=== PATIENT | female | born 1995 | race American Indian/Alaskan Native ===

== ENCOUNTER 2018-04-03 21:59 | Emergency (ER) | payer MEDICAID ==
[2018-04-03 21:59] VITALS: BMI 20.3
[2018-04-03 22:19] VITALS: TEMP 98.2
--- NOTE | 2018-04-03 22:30 | ED PDOC ---
Arrival/HPI - General Chief Complaint: Abdominal Pain Time Seen by Provider: 04/03/18 22:00 Historian: Patient - History of Present Illness Narrative History of Present Illness (Text): 04/03/18 22:30 Monty Mason is a 22 year old female who presents to the Emergency department complaining of suprapubic abdominal discomfort since yesterday. Patient describes pain as waxing/waning. Patient reports associated scanty vaginal discharge and some urinary frequency. Patient denies any fever, chills, shortness of breath, nausea, vomiting, diarrhea, dysuria, back pain, neck pain, headache, or any other complaints. Symptom Onset: Gradual Symptom Course: Unchanged Activities at Onset: Light Context: Home Past Medical History - Provider Review Nursing Documentation Reviewed: Yes - Infectious Disease Hx of Infectious Diseases: None - Cardiac Hx Cardiac Disorders: No - Pulmonary Hx Respiratory Disorders: No - Neurological Hx Neurological Disorder: No - HEENT Hx HEENT Disorder: No - Renal Hx Renal Disorder: No - Endocrine/Metabolic Hx Endocrine Disorders: No - Hematological/Oncological Hx Blood Disorders: No - Integumentary Hx Dermatological Disorder: No - Musculoskeletal/Rheumatological Hx Musculoskeletal Disorders: No - Gastrointestinal Hx Gastrointestinal Disorders: No - Genitourinary/Gynecological Hx Genitourinary Disorders: No - Psychiatric Hx Psychophysiologic Disorder: No Hx Anxiety: No Hx Bipolar Disorder: No Hx Depression: No Hx Emotional Abuse: No Hx Hallucinations: No Hx Panic Disorder: No Hx Post Traumatic Stress Disorder: No Hx Psychosis: No Hx Physical Abuse: No Hx Schizophrenia: No Hx Sexual Abuse: No Hx Substance Use: No - Anesthesia Hx Anesthesia: Yes Hx Anesthesia Reactions: No Hx Malignant Hyperthermia: No Family/Social History - Physician Review Nursing Documentation Reviewed: Yes Family/Social History: Unknown Family HX Smoking Status: Never Smoked Hx Alcohol Use: Yes Hx Substance Use: No Allergies/Home Meds Allergies/Adverse Reactions: Allergies No Known Allergies Allergy (Verified 04/03/18 22:08) Review of Systems - Physician Review All systems were reviewed & negative as marked: Yes - Review of Systems Constitutional: Normal. absent: Fevers Eyes: Normal ENT: Normal Respiratory: Normal. absent: SOB, Cough Cardiovascular: Normal. absent: Chest Pain Gastrointestinal: absent: Diarrhea, Nausea, Vomiting Genitourinary Female: Frequency, Vaginal Discharge. absent: Hematuria, Urine Output Changes Musculoskeletal: Normal. absent: Back Pain, Neck Pain Skin: Normal. absent: Rash Neurological: Normal. absent: Headache, Dizziness Endocrine: Normal Hemo/Lymphatic: Normal Psychiatric: Normal Physical Exam Vital Signs Reviewed: Yes Vital Signs Temp Pulse Resp BP Pulse Ox 04/04/18 01:38 98.2 F 72 17 138/72 98 04/03/18 22:08 98.2 F 68 18 140/89 99 Temperature: Afebrile Blood Pressure: Normal Pulse: Regular Respiratory Rate: Normal Appearance: Positive for: Well-Appearing, Non-Toxic, Comfortable Pain Distress: None Mental Status: Positive for: Alert and Oriented X 3 - Systems Exam Head: Present: Atraumatic, Normocephalic Pupils: Present: PERRL Extroacular Muscles: Present: EOMI Conjunctiva: Present: Normal Mouth: Present: Moist Mucous Membranes Neck: Present: Normal Range of Motion Respiratory/Chest: Present: Clear to Auscultation, Good Air Exchange. No: Respiratory Distress, Accessory Muscle Use Cardiovascular: Present: Regular Rate and Rhythm, Normal S1, S2. No: Murmurs Abdomen: No: Tenderness, Distention, Peritoneal Signs Genitourinary/Pelvic Exam: Present: Other (Refused pelvic exam) Back: Present: Normal Inspection Upper Extremity: Present: Normal Inspection. No: Cyanosis, Edema Lower Extremity: Present: Normal Inspection. No: Edema Neurological: Present: GCS=15, CN II-XII Intact, Speech Normal Skin: Present: Warm, Dry, Normal Color. No: Rashes Psychiatric: Present: Alert, Oriented x 3, Normal Insight, Normal Concentration Medical Decision Making ED Course and Treatment: 04/03/18 22:30 Impression: 22 year old female complaining of suprapubic abdominal discomfort. Plan: -- Labs, lipase -- Urinalysis -- IV fluids -- Reassess and disposition Progress Notes: 04/04/18 01:17 Pt refused pelvic exam. 04/04/18 01:20 On re-evaluation, patient feels better and is in no acute distress. I have discussed the results and plan with the patient, who expresses understanding. Patient in agreement with plan to be discharged home. Patient is stable for discharge. Patient was instructed to follow up with physician or return if symptoms worsen or new concerning symptoms arise. - Lab Interpretations Lab Results: 04/03/18 22:45 04/03/18 22:45 Lab Results 04/03/18 22:45: WBC 7.3, RBC 4.37, Hgb 11.0 L, Hct 33.7 L, MCV 77.1 L, MCH 25.2 , MCHC 32.6, RDW 15.1 H, Plt Count 234, MPV 9.7 04/03/18 22:45: Sodium 140, Potassium 3.7, Chloride 103, Carbon Dioxide 27, Anion Gap 14, BUN 16, Creatinine 0.7, Est GFR ( Amer) > 60, Est GFR (Non- Af Amer) > 60, Random Glucose 101, Calcium 9.4, Total Bilirubin 0.5, AST 19, ALT 21, Alkaline Phosphatase 53, Total Protein 6.9, Albumin 3.9, Globulin 3.1, Albumin/Globulin Ratio 1.3, Lipase 98 04/03/18 22:38: Urine Color Yellow, Urine Appearance Sl cloudy, Urine pH 6.0, Ur Specific [place] >= 1.030, Urine Protein Trace H, Urine Glucose (UA) Negative , Urine Ketones Trace H, Urine Blood Trace-lysed H, Urine Nitrate Negative, Urine Bilirubin Negative, Urine Urobilinogen 0.2, Ur Leukocyte Esterase Moderate H, Urine RBC 0 - 2, Urine WBC 5 - 10, Ur Epithelial Cells 1 - 3, Urine Bacteria Small, Urine HCG, Qual Negative I have reviewed the lab results: Yes - Medication Orders Current Medication Orders: Discontinued Medications Cephalexin Monohydrate (Keflex) 500 mg PO ONCE STA PRN Reason: Protocol Stop: 04/04/18 01:18 Last Admin: 04/04/18 01:37 Dose: 500 mg Sodium Chloride (Sodium Chloride 0.9%) 1,000 mls @ 999 mls/hr IV .Q1H1M STA Stop: 04/03/18 23:31 Last Admin: 04/03/18 22:51 Dose: 999 mls/hr eMAR Start Stop Document 04/03/18 22:51 IT (Rec: 04/03/18 22:51 IT [id number]) Intravenous Solution Start Date 04/03/18 Start Time 22:51 Ibuprofen (Motrin Tab) 600 mg PO STAT STA Stop: 04/04/18 01:18 Last Admin: 04/04/18 01:37 Dose: 600 mg - Scribe Statement The provider has reviewed the documentation as recorded by the Rodney Barrera All medical record entries made by the Rodney were at my direction and personally dictated by me. I have reviewed the chart and agree that the record accurately reflects my personal performance of the history, physical exam, medical decision making, and the department course for this patient. I have also personally directed, reviewed, and agree with the discharge instructions and disposition. Disposition/Present on Arrival - Present on Arrival Any Indicators Present on Arrival: No History of DVT/PE: No History of Uncontrolled Diabetes: No Urinary Catheter: No History of Decub. Ulcer: No History Surgical Site Infection Following: None - Disposition Have Diagnosis and Disposition been Completed?: Yes Diagnosis: UTI (urinary tract infection) Disposition: HOME/ ROUTINE Disposition Time: 01:18 Patient Plan: Discharge Condition: GOOD Discharge Instructions (ExitCare): Urinary Tract Infection, Adult (DC) Additional Instructions: Drink plenty of liquids/take meds as prescribed/follow up with your doctor this week Prescriptions: Cephalexin [cephalexin] 500 mg PO BID #10 cap Ibuprofen [Motrin] 600 mg PO Q8 PRN #12 tab PRN Reason: Pain, Moderate (4-7) Forms: [facility] (Puerto Rican)
[2018-04-03] MEDS ORDERED: Sodium Chloride 0.9% 1,000 ML IV STA (22:31)
[2018-04-03 22:49] LABS: MEAN CELL VOLUME 77.1 fl (80.0-105.0); MEAN CORPUSCULAR HEMOGLOBIN 25.2 pg (25.0-35.0); MEAN CORPUSCULAR HGB CONC 32.6 g/dl (31.0-37.0); MEAN PLATELET VOLUME 9.7 fl (7.0-11.0); RBC 4.37 10^6/uL (3.5-6.1); RED CELL DISTRIBUTION WIDTH 15.1 % (11.5-14.5); WHITE BLOOD COUNT 7.3 10^3/ul (4.5-11.0)
[2018-04-03 22:59] LABS: ALB/GLOB RATIO 1.3 (1.1-1.8); ALBUMIN 3.9 g/dL (3.0-4.8); ALT/SGPT 21 U/L (7-56); AST/SGOT 19 U/L (14-36); BLOOD UREA NITROGEN 16 mg/dL (7-21); CALCIUM 9.4 mg/dL (8.4-10.5); GFR AFRICAN-AMERICAN > 60; GFR NON-AFRICAN AMERICAN > 60; LIPASE 98 U/L (23-300)
[2018-04-04 00:34] LABS: URINE BILIRUBIN NEGATIVE (NEGATIVE); URINE BLOOD TRACE-LYSED (NEGATIVE); URINE GLUCOSE (UA) NEGATIVE (NEGATIVE); URINE LEUKOCYTE ESTERASE MODERATE Leu/uL (NEGATIVE); URINE PROTEIN TRACE mg/dL (<30 mg/dL); URINE UROBILINOGEN 0.2 E.U./dL (<1 E.U./dL)
[2018-04-04 00:41] LABS: HCG,QUALITATIVE URINE NEGATIVE (NEGATIVE); URINE APPEARANCE SL CLOUDY (CLEAR); URINE COLOR YELLOW (YELLOW)
[2018-04-04 00:46] LABS: URINE BACTERIA SMALL (NEG); URINE RBC 0 - 2 /hpf (0-2)
[2018-04-04 01:39] VITALS: BP 138/72; PULSE 72; RESP 17; O2SAT 98
== END 2018-04-04 01:38 | disposition home or self-care (01) ==
LOC: ED 21:59
DX: N39.0 Urinary tract infection, site not specified (principal)
CPT/HCPCS: 80053; 81001; 83690; 84703; 85027; 87086; 99283; J7030

== ENCOUNTER 2018-09-23 11:22 | Emergency (ER) | payer MEDICAID ==
[2018-09-23 11:47] VITALS: BMI 29.8
[2018-09-23 11:56] VITALS: O2SAT 99
[2018-09-23] MEDS ORDERED: Oxycodone/Acetaminophen 5/325 mg Tab PO STA (12:08)
--- NOTE | 2018-09-23 12:08 | ED PDOC ---
Arrival/HPI - General Chief Complaint: Dental Pain Historian: Patient - History of Present Illness Narrative History of Present Illness (Text): 09/23/18 11:58 22 y/o female, no significant pmh, nkda, c/o rt. lower molar pain s/p wisdom tooth extraction 2-3 days ago. Pt. stated that it's aching pain, on and off, taking tylenol#3 and the penicillin at home, unable to see the pmd or dentist today, no night sweat, no rash, no dizziness, no change in vision, no numbness or tingling, no rash, no other medical or psychological complaints. Past Medical History - Provider Review Nursing Documentation Reviewed: Yes - Infectious Disease Hx of Infectious Diseases: None - Cardiac Hx Cardiac Disorders: No - Pulmonary Hx Respiratory Disorders: No - Neurological Hx Neurological Disorder: No - HEENT Hx HEENT Disorder: No - Renal Hx Renal Disorder: No - Endocrine/Metabolic Hx Endocrine Disorders: No - Hematological/Oncological Hx Blood Disorders: No - Integumentary Hx Dermatological Disorder: No - Musculoskeletal/Rheumatological Hx Musculoskeletal Disorders: No - Gastrointestinal Hx Gastrointestinal Disorders: No - Genitourinary/Gynecological Hx Genitourinary Disorders: No - Psychiatric Hx Psychophysiologic Disorder: No Hx Anxiety: No Hx Bipolar Disorder: No Hx Depression: No Hx Emotional Abuse: No Hx Hallucinations: No Hx Panic Disorder: No Hx Post Traumatic Stress Disorder: No Hx Psychosis: No Hx Physical Abuse: No Hx Schizophrenia: No Hx Sexual Abuse: No Hx Substance Use: No - Anesthesia Hx Anesthesia: Yes Hx Anesthesia Reactions: No Hx Malignant Hyperthermia: No Family/Social History - Physician Review Nursing Documentation Reviewed: Yes Family/Social History: Unknown Family HX Smoking Status: Never Smoked Hx Alcohol Use: Yes Hx Substance Use: No Allergies/Home Meds Allergies/Adverse Reactions: Allergies No Known Allergies Allergy (Verified 09/23/18 11:56) Home Medications: Home Meds Medication Instructions Recorded Confirmed Acetaminophen with Codeine 1 tab PO PRN PRN 09/23/18 09/23/18 [Tylenol with Codeine No. 3 300 mg-30 mg] Review of Systems - Review of Systems Constitutional: absent: Fatigue, Fevers Eyes: absent: Vision Changes ENT: Other (+dental pain). absent: Hearing Changes Respiratory: absent: SOB, Cough Cardiovascular: absent: Chest Pain Gastrointestinal: absent: Abdominal Pain, Vomiting Skin: absent: Rash, Pruritis Neurological: absent: Headache, Dizziness Psychiatric: absent: Anxiety, Depression, Suicidal Ideation Physical Exam Vital Signs Reviewed: Yes Vital Signs Temp Pulse Resp BP Pulse Ox 09/23/18 11:47 99.1 F 90 18 138/87 99 Temperature: Afebrile Blood Pressure: Normal Pulse: Regular Respiratory Rate: Normal Appearance: Positive for: Well-Appearing, Non-Toxic, Comfortable Pain Distress: None Mental Status: Positive for: Alert and Oriented X 3 - Systems Exam Head: Present: Atraumatic, Normocephalic Pupils: Present: PERRL Extroacular Muscles: Present: EOMI Conjunctiva: Present: Normal Ears: Present: NORMAL TM, Normal Canal. No: Erythema Mouth: Present: Moist Mucous Membranes, Normal Lips, Normal Tounge, Other (visible lt. lower molar noted to have missing [place] tooth with no gingival abscess or gingivitis. ). No: Drooling, Trismus Neck: Present: Normal Range of Motion Respiratory/Chest: Present: Clear to Auscultation, Good Air Exchange. No: Respiratory Distress, Accessory Muscle Use Cardiovascular: Present: Regular Rate and Rhythm, Normal S1, S2. No: Murmurs Abdomen: No: Tenderness, Distention, Peritoneal Signs Back: Present: Normal Inspection Upper Extremity: Present: Normal Inspection. No: Cyanosis, Edema Lower Extremity: Present: Normal Inspection. No: Edema Neurological: Present: GCS=15, CN II-XII Intact, Speech Normal, Motor Func Grossly Intact, Gait Normal, Memory Normal Skin: Present: Warm, Dry, Normal Color. No: Rashes Psychiatric: Present: Alert, Oriented x 3, Normal Insight, Normal Concentration Medical Decision Making ED Course and Treatment: 09/23/18 12:11 -Preg -Toradol/percocet -Observe and reassess 09/23/18 13:06 -This is likely dry socket and there is no dentist available at this facility. -Urine hcg is negative. -Pt. feels much better, request to be discharged home. -Discharge home with duexis, continue your antibiotic and tylenol#3 as needed, follow up with a dentist today and pmd within 2 days, return to the ER for any new or worsening signs or symptoms. - PA / ACLS SPECIALIST / Resident Statement MD/DO has reviewed & agrees with the documentation as recorded. Disposition/Present on Arrival - Present on Arrival Any Indicators Present on Arrival: No History of DVT/PE: No History of Uncontrolled Diabetes: No Urinary Catheter: No History of Decub. Ulcer: No History Surgical Site Infection Following: None - Disposition Have Diagnosis and Disposition been Completed?: Yes Diagnosis: Pain, dental Disposition: HOME/ ROUTINE Disposition Time: 12:12 Patient Plan: Discharge Patient Problems: Current Active Problems Problem Status Onset Pain, dental Acute Condition: IMPROVED Additional Instructions: -Discharge home with duexis, continue your antibiotic and tylenol#3 as needed, follow up with a dentist today and pmd within 2 days, return to the ER for any new or worsening signs or symptoms. Prescriptions: Ibuprofen/Famotidine [Duexis 26.6 mg-800 mg] 1 tab PO TID PRN #21 tab PRN Reason: Other Referrals: Tiffany Farah MD [Primary Care Provider] - Follow up with primary Forms: [facility] (Turkmen), WORK NOTE
[2018-09-23 13:27] VITALS: BP 118/80; PULSE 74; RESP 16; TEMP 98.7
== END 2018-09-23 13:28 | disposition home or self-care (01) ==
LOC: ED 11:22
DX: K08.89 Other specified disorders of teeth and supporting structures (principal)
CPT/HCPCS: 96372; 99282; J1885

== ENCOUNTER 2019-02-10 09:20 | Inpatient (IN) | payer MEDICAID ==
[2019-02-10 09:21] VITALS: BMI 29.8
[2019-02-10] MEDS ORDERED: Sodium Chloride 0.9% 1,000 ML IV STA (10:03)
--- NOTE | 2019-02-10 10:11 | ED PDOC ---
Arrival/HPI - General Chief Complaint: Flu-like Symptoms Time Seen by Provider: 02/10/19 09:42 Historian: Patient - History of Present Illness Narrative History of Present Illness (Text): 02/10/19 10:10 A 23 year old female, whose past medical history includes UTI, presents to the emergency department complaining of fever and generalize myalgias for the past 24 hours. Patient reports she became sick at work yesterday and someone gave her a DayQuil and two Ibuprofen tablets after feeling subjective fever. Also, notes experiencing headache gradual onset that began 1 week prior. Patient denies any chest pain, cough, dysuria, abdominal pain, shortness of breath, or any other complaints at this time. Denies any recent sick contacts, any new sexual partners, or any recent travel. LMP 01/28/19. PMD: Dr. Tiffany Farah Past Medical History - Provider Review Nursing Documentation Reviewed: Yes - Infectious Disease Hx of Infectious Diseases: None - Cardiac Hx Cardiac Disorders: No - Pulmonary Hx Respiratory Disorders: No - Neurological Hx Neurological Disorder: No - HEENT Hx HEENT Disorder: No - Renal Hx Renal Disorder: No - Endocrine/Metabolic Hx Endocrine Disorders: No - Hematological/Oncological Hx Blood Disorders: No - Integumentary Hx Dermatological Disorder: No - Musculoskeletal/Rheumatological Hx Musculoskeletal Disorders: No - Gastrointestinal Hx Gastrointestinal Disorders: No - Genitourinary/Gynecological Hx Genitourinary Disorders: No - Psychiatric Hx Psychophysiologic Disorder: No Hx Anxiety: No Hx Bipolar Disorder: No Hx Depression: No Hx Emotional Abuse: No Hx Hallucinations: No Hx Panic Disorder: No Hx Post Traumatic Stress Disorder: No Hx Psychosis: No Hx Physical Abuse: No Hx Schizophrenia: No Hx Sexual Abuse: No Hx Substance Use: No - Anesthesia Hx Anesthesia: Yes Hx Anesthesia Reactions: No Hx Malignant Hyperthermia: No Family/Social History - Physician Review Nursing Documentation Reviewed: Yes Family/Social History: No Known Family HX Smoking Status: Never Smoked Hx Alcohol Use: Yes Hx Substance Use: No Allergies/Home Meds Allergies/Adverse Reactions: Allergies No Known Allergies Allergy (Verified 09/23/18 11:56) Home Medications: Home Meds Medication Instructions Recorded Confirmed Acetaminophen with Codeine 1 tab PO PRN PRN 09/23/18 09/23/18 [Tylenol with Codeine No. 3 300 mg-30 mg] Review of Systems - Physician Review All systems were reviewed & negative as marked: Yes - Review of Systems Constitutional: Fevers (subjective) Respiratory: absent: SOB, Cough Cardiovascular: absent: Chest Pain Gastrointestinal: absent: Abdominal Pain Genitourinary Female: absent: Dysuria Musculoskeletal: Myalgias Physical Exam Vital Signs Reviewed: Yes Vital Signs Temp Pulse Resp BP Pulse Ox 02/10/19 09:34 102.5 F H 111 H 18 136/59 L 97 Temperature: Febrile Blood Pressure: Normal Pulse: Tachycardic Respiratory Rate: Normal Appearance: Positive for: Well-Appearing, Non-Toxic, Comfortable Pain Distress: None Mental Status: Positive for: Alert and Oriented X 3 - Systems Exam Head: Present: Atraumatic, Normocephalic Pupils: Present: PERRL Extroacular Muscles: Present: EOMI Conjunctiva: Present: Normal Mouth: Present: Moist Mucous Membranes Neck: Present: Normal Range of Motion Respiratory/Chest: Present: Clear to Auscultation, Good Air Exchange. No: Respiratory Distress, Accessory Muscle Use, Wheezes, Rales, Rhonchi Cardiovascular: Present: Tachycardic Abdomen: No: Tenderness, Distention, Peritoneal Signs, Rebound, Guarding, Other (no nuchal rigidity) Upper Extremity: Present: Normal Inspection. No: Cyanosis, Edema Lower Extremity: Present: Normal Inspection. No: Edema (no trace edema bilaterally) Neurological: Present: GCS=15, CN II-XII Intact, Speech Normal Skin: Present: Warm, Dry, Normal Color. No: Rashes Psychiatric: Present: Alert, Oriented x 3, Normal Insight, Normal Concentration Medical Decision Making ED Course and Treatment: 02/10/19 10:13 Impression: 23 year old female with subjective fever and generalize myalgias. Plan: --Rocephin --Azithromycin --IV Fluids -- Chest X-ray -- Labs -- Tylenol -- Venous Blood Gas -- Urine Culture -- Blood Culture -- Urinalysis -- POC Urine Test -- Reassess and disposition Progress Notes: 02/10/19 11:20 After review of vitals, patient is noted to fulfill SIRS criteria(HR: 111 & T:102.5F) and noted to have leukocytosis of 16.1 with presumed respiratory infection. UA reveals many bacteria, but is negative for nitrites and esterses at this time. ABG reveals lactate of 1.0 with metabolic alkalosis. CODE SEPSIS called with 30cc/kg fluid bolus and antibiotics ordered. - Lab Interpretations Lab Results: 02/10/19 10:25 02/10/19 10:25 Lab Results 02/10/19 10:45: pO2 50, VBG pH 7.42, VBG pCO2 37.0 L, VBG HCO3 24.0, VBG Total CO2 25.1, VBG O2 Sat (Calc) 89.9 H, VBG Base Excess -0.2 L, VBG Potassium 3.5 L, Glucose 87, Lactate 1.0, FiO2 21.0, Sodium 136.0, Chloride 105.0, Venous Blood Potassium 3.5 L 02/10/19 10:44: Urine Color Yellow, Urine Appearance Clear, Urine pH 8.0, Ur Specific [place] 1.025, Urine Protein 100 H, Urine Glucose (UA) Negative, Urine Ketones 15 H, Urine Blood Negative, Urine Nitrate Negative, Urine Bilirubin Negative, Urine Urobilinogen 0.2, Ur Leukocyte Esterase Negative, Urine RBC 1 - 3 H, Urine WBC 2 - 5, Ur Epithelial Cells 4 - 5, Urine Bacteria Many, Hyaline Casts 0 - 2, Urine Other Uyeast 02/10/19 10:25: Sodium 141, Potassium 3.7, Chloride 106, Carbon Dioxide 25, Anion Gap 13, BUN 9, Creatinine 0.7, Est GFR ( Amer) > 60, Est GFR (Non- Af Amer) > 60, Random Glucose 96, Calcium 9.0, Phosphorus 2.3 L, Magnesium 1.9, Total Bilirubin 1.2, AST 26, ALT 12, Alkaline Phosphatase 69, Total Protein 7.8, Albumin 4.2, Globulin 3.6, Albumin/Globulin Ratio 1.2 02/10/19 10:25: PT 14.9 H, INR 1.32, APTT 30.0 02/10/19 10:25: WBC 16.1 H, RBC 4.86, Hgb 12.0, Hct 37.6, MCV 77.4 L, MCH 24.7 L , MCHC 31.9, RDW 15.0 H, Plt Count 251, MPV 9.6, Neut % (Auto) 83.9 H, Lymph % (Auto) 9.9 L, [place] % (Auto) 5.8, Eos % (Auto) 0.2 L, Baso % (Auto) 0.2, Lymph # (Auto) 1.6, [place] # (Auto) 0.9 H, Eos # (Auto) 0.0, Baso # (Auto) 0.03, Absolute Neuts (auto) 13.55 H I have reviewed the lab results: Yes - RAD Interpretation Narrative RAD Interpretations (Text): 02/10/2019 12:04 Chest X-ray IMPRESSION: No acute findings identified. Dictator: Roxy Pelayo MD Radiology Orders: 02/10/19 09:44 CHEST PORTABLE [RAD] Stat - Medication Orders Current Medication Orders: Sodium Chloride (Sodium Chloride 0.9%) 1,000 mls @ 999 mls/hr IV .Q1H1M STA Stop: 02/10/19 11:03 Discontinued Medications Acetaminophen (Tylenol 325mg Tab) 650 mg PO STAT STA Stop: 02/10/19 09:47 - Scribe Statement The provider has reviewed the documentation as recorded by the Wlatibmekhi Baird Provider Scribe Attestation: All medical record entries made by the Scribe were at my direction and personally dictated by me. I have reviewed the chart and agree that the record accurately reflects my personal performance of the history, physical exam, medical decision making, and the department course for this patient. I have also personally directed, reviewed, and agree with the discharge instructions and disposition. Disposition/Present on Arrival - Present on Arrival History of DVT/PE: No History of Uncontrolled Diabetes: No Urinary Catheter: No History of Decub. Ulcer: No History Surgical Site Infection Following: None - Disposition
[2019-02-10 10:55] LABS: BASO # 0.03 K/mm3 (0.0-2.0); BASO % 0.2 % (0.0-3.0); EOS % 0.2 % (1.5-5.0); LYMPH # 1.6 (1.2-3.4); LYMPH % 9.9 % (22.0-35.0); MEAN CELL VOLUME 77.4 fl (80.0-105.0); MEAN CORPUSCULAR HEMOGLOBIN 24.7 pg (25.0-35.0); MEAN CORPUSCULAR HGB CONC 31.9 g/dl (31.0-37.0); MEAN PLATELET VOLUME 9.6 fl (7.0-11.0); MONO # 0.9 (0.1-0.6); MONO % 5.8 % (1.0-6.0); RBC 4.86 10^6/uL (3.5-6.1); WHITE BLOOD COUNT 16.1 10^3/uL (4.5-11.0)
[2019-02-10 10:56] LABS: VENOUS BLOOD GAS BASE EXCESS -0.2 mmol/L (0.0-2.0); VENOUS BLOOD GAS PO2 50 mm/Hg (30-55); VENOUS BLOOD PH 7.42 (7.32-7.43)
[2019-02-10 11:00] LABS: URINE BILIRUBIN NEGATIVE (NEGATIVE); URINE BLOOD NEGATIVE (NEGATIVE); URINE GLUCOSE (UA) NEGATIVE (NEGATIVE); URINE LEUKOCYTE ESTERASE NEGATIVE Leu/uL (NEGATIVE); URINE PROTEIN 100 mg/dL (<30 mg/dL); URINE UROBILINOGEN 0.2 E.U./dL (<1 E.U./dL)
[2019-02-10 11:03] LABS: URINE APPEARANCE CLEAR (CLEAR); URINE COLOR YELLOW (YELLOW)
[2019-02-10 11:05] LABS: INR 1.32; PROTHROMBIN TIME 14.9 SECONDS (9.4-12.5)
[2019-02-10 11:08] LABS: ALB/GLOB RATIO 1.2 (1.1-1.8); ALBUMIN 4.2 g/dL (3.0-4.8); ALT/SGPT 12 U/L (7-56); AST/SGOT 26 U/L (14-36); BLOOD UREA NITROGEN 9 mg/dL (7-21); GFR NON-AFRICAN AMERICAN > 60
[2019-02-10 11:10] LABS: URINE BACTERIA MANY /hpf
[2019-02-10 11:11] LABS: URINE HYALINE CAST 0 - 2 /hpf
[2019-02-10] MEDS ORDERED: cefTRIAXone 1 gm 1 GM/100 ML BAG IVPB STA (11:17)
[2019-02-10] MEDS ORDERED: Azithromycin 500MG/NS 250ml 500 MG/250 ML BAG IVPB STA (11:17)
--- NOTE | 2019-02-10 12:08 | RAD ---
HISTORY: fever COMPARISON: None available. TECHNIQUE: Chest, one view. FINDINGS: Examination limited by habitus. LUNGS: No focal consolidation. Please note that chest x-ray has limited sensitivity for the detection of pulmonary masses. PLEURA: No significant pleural effusion identified. No definite pneumothorax . CARDIOVASCULAR: The cardiomediastinal silhouette appears within normal limits of size. No significant atherosclerotic calcification present. OSSEOUS STRUCTURES: No acute osseous abnormality identified. VISUALIZED UPPER ABDOMEN: Unremarkable. OTHER FINDINGS: None. IMPRESSION: No acute findings identified.
[2019-02-10] MEDS: Sodium Chloride 0.9% 1,000 ML IV SCH ×2 (12:30→18:11)
[2019-02-10] MEDS ORDERED: guaiFENesin 100 mg/5 ml Syrup UD PO PRN (14:11)
--- NOTE | 2019-02-10 14:12 | CP.PCM.HP ---
<Compa Desai - Last Filed: 02/10/19 14:12> History of Present Illness - History of Present Illness History of Present Illness: 23 year old female with no past medical history presents to the hospital for fever, cough, and myalgias x 2 days. Patient states she began to suddenly developed body aches over the past 2 days. This was accompanied by cough and a fever of 101 F at home. Patient states she took ibuprofen for her pain which helped minimally. Patient states aches have become worse. Denies chest pain, shortness of breath, chills, nausea, vomiting, dysuria, hematochezia, photopho veronica. Medical Hx: None Surgical Hx: None Family Hx: HTN, DM Social Hx: Denies alcohol, tobacco, or illicit drug use Allergies: NKDA Medications: None Present on Admission - Present on Admission Any Indicators Present on Admission: No Review of Systems - Review of Systems Review of Systems: 12 point ROS as per HPI, otherwise negative Past Patient History - Infectious Disease Hx of Infectious Diseases: None - Past Social History Smoking Status: Never Smoked - CARDIAC Hx Cardiac Disorders: No - PULMONARY Hx Respiratory Disorders: No - NEUROLOGICAL Hx Neurological Disorder: No - HEENT Hx HEENT Problems: No - RENAL Hx Chronic Kidney Disease: No - ENDOCRINE/METABOLIC Hx Endocrine Disorders: No - HEMATOLOGICAL/ONCOLOGICAL Hx Blood Disorders: No - INTEGUMENTARY Hx Dermatological Problems: No - MUSCULOSKELETAL/RHEUMATOLOGICAL Hx Musculoskeletal Disorders: No - GASTROINTESTINAL Hx Gastrointestinal Disorders: No - GENITOURINARY/GYNECOLOGICAL Hx Genitourinary Disorders: No - PSYCHIATRIC Hx Psychophysiologic Disorder: No Hx Anxiety: No Hx Bipolar Disorder: No Hx Depression: No Hx Emotional Abuse: No Hx Hallucinations: No Hx Panic Symptoms: No Hx Post Traumatic Stress Disorder: No Hx Psychosis: No Hx Physical Abuse: No Hx Schizophrenia: No Hx Sexual Abuse: No Hx Substance Use: No - SURGICAL HISTORY Hx Surgeries: No - ANESTHESIA Hx Anesthesia: Yes Hx Anesthesia Reactions: No Hx Malignant Hyperthermia: No Meds Allergies/Adverse Reactions: Allergies Allergy/AdvReac Type Severity Reaction Status Date / Time No Known Allergies Allergy Verified 09/23/18 11:56 Physical Exam - Constitutional Appears: Toxic, No Acute Distress - Head Exam Head Exam: ATRAUMATIC, NORMAL INSPECTION, NORMOCEPHALIC - Eye Exam Eye Exam: EOMI, Normal appearance - ENT Exam ENT Exam: Mucous Membranes Dry, Normal Exam - Neck Exam Neck exam: Positive for: Normal Inspection. Negative for: Lymphadenopathy - Respiratory Exam Respiratory Exam: Clear to Auscultation Bilateral, NORMAL BREATHING PATTERN. absent: Rales, Rhonchi, Wheezes - Cardiovascular Exam Cardiovascular Exam: RRR, +S1, +S2. absent: Gallop, Rubs, Systolic Murmur - GI/Abdominal Exam GI & Abdominal Exam: Normal Bowel Sounds, Soft. absent: Rebound, Tenderness - Extremities Exam Extremities exam: Positive for: normal inspection. Negative for: calf tenderness, pedal edema - Neurological Exam Neurological exam: Alert, CN II-XII Intact, Oriented x3 - Psychiatric Exam Psychiatric exam: Normal Affect, Normal Mood - Skin Skin Exam: Intact, Normal Color, Warm Results - Vital Signs Recent Vital Signs: Last Vital Signs Temp 98.2 F 02/10/19 12:06 Pulse 108 H 02/10/19 12:06 Resp 18 02/10/19 12:06 BP 122/71 02/10/19 12:06 Pulse Ox 98 02/10/19 12:06 - Labs Result Diagrams: 02/10/19 10:25 02/10/19 10:25 Labs: Laboratory Results - last 24 hr 02/10/19 02/10/19 02/10/19 10:25 10:25 10:25 WBC 16.1 H RBC 4.86 Hgb 12.0 Hct 37.6 MCV 77.4 L MCH 24.7 L MCHC 31.9 RDW 15.0 H Plt Count 251 MPV 9.6 Neut % (Auto) 83.9 H Lymph % (Auto) 9.9 L [place] % (Auto) 5.8 Eos % (Auto) 0.2 L Baso % (Auto) 0.2 Lymph # (Auto) 1.6 [place] # (Auto) 0.9 H Eos # (Auto) 0.0 Baso # (Auto) 0.03 Absolute Neuts (auto) 13.55 H PT 14.9 H INR 1.32 APTT 30.0 pO2 VBG pH VBG pCO2 VBG HCO3 VBG Total CO2 VBG O2 Sat (Calc) VBG Base Excess VBG Potassium Glucose Lactate FiO2 Sodium 141 Potassium 3.7 Chloride 106 Carbon Dioxide 25 Anion Gap 13 BUN 9 Creatinine 0.7 Est GFR ( Amer) > 60 Est GFR (Non-Af Amer) > 60 Random Glucose 96 Calcium 9.0 Phosphorus 2.3 L Magnesium 1.9 Total Bilirubin 1.2 AST 26 ALT 12 Alkaline Phosphatase 69 Total Protein 7.8 Albumin 4.2 Globulin 3.6 Albumin/Globulin Ratio 1.2 Venous Blood Potassium Urine Color Urine Appearance Urine pH Ur Specific [place] Urine Protein Urine Glucose (UA) Urine Ketones Urine Blood Urine Nitrate Urine Bilirubin Urine Urobilinogen Ur Leukocyte Esterase Urine RBC Urine WBC Ur Epithelial Cells Urine Bacteria Hyaline Casts Urine Other Influenza Typ A,B (EIA) 02/10/19 02/10/19 02/10/19 10:41 10:44 10:45 WBC RBC Hgb Hct MCV MCH MCHC RDW Plt Count MPV Neut % (Auto) Lymph % (Auto) [place] % (Auto) Eos % (Auto) Baso % (Auto) Lymph # (Auto) [place] # (Auto) Eos # (Auto) Baso # (Auto) Absolute Neuts (auto) PT INR APTT pO2 50 VBG pH 7.42 VBG pCO2 37.0 L VBG HCO3 24.0 VBG Total CO2 25.1 VBG O2 Sat (Calc) 89.9 H VBG Base Excess -0.2 L VBG Potassium 3.5 L Glucose 87 Lactate 1.0 FiO2 21.0 Sodium 136.0 Potassium Chloride 105.0 Carbon Dioxide Anion Gap BUN Creatinine Est GFR ( Amer) Est GFR (Non-Af Amer) Random Glucose Calcium Phosphorus Magnesium Total Bilirubin AST ALT Alkaline Phosphatase Total Protein Albumin Globulin Albumin/Globulin Ratio Venous Blood Potassium 3.5 L Urine Color Yellow Urine Appearance Clear Urine pH 8.0 Ur Specific [place] 1.025 Urine Protein 100 H Urine Glucose (UA) Negative Urine Ketones 15 H Urine Blood Negative Urine Nitrate Negative Urine Bilirubin Negative Urine Urobilinogen 0.2 Ur Leukocyte Esterase Negative Urine RBC 1 - 3 H Urine WBC 2 - 5 Ur Epithelial Cells 4 - 5 Urine Bacteria Many Hyaline Casts 0 - 2 Urine Other [place] Influenza Typ A,B (EIA) Negative for flu a/b Assessment & Plan - Assessment and Plan (Free Text) Plan: 23 year old female with no medical history presents with upper respiratory illness. URI Chest x-ray reviewed, negative Rapid flu negative Received Rocephin in the ED Will continue IV azithroymicin Will start Tamiflu NS @ 150/hr Robitussin PRN Zofran PRN Tylenol PRN Will recheck labs in AM Hypophosphatemia Repleted, will recheck in AM PPX Pepcid SCDs Lloyd, PGY-3 <Keyur Gonsales - Last Filed: 02/10/19 18:21> Results - Vital Signs Recent Vital Signs: Last Vital Signs Temp 101.3 F H 02/10/19 16:16 Pulse 100 H 02/10/19 16:39 Resp 19 02/10/19 16:39 BP 120/77 02/10/19 16:39 Pulse Ox 99 02/10/19 16:39 - Labs Result Diagrams: 02/10/19 10:25 02/10/19 10:25 Labs: Laboratory Results - last 24 hr 02/10/19 02/10/19 02/10/19 10:25 10:25 10:25 WBC 16.1 H RBC 4.86 Hgb 12.0 Hct 37.6 MCV 77.4 L MCH 24.7 L MCHC 31.9 RDW 15.0 H Plt Count 251 MPV 9.6 Neut % (Auto) 83.9 H Lymph % (Auto) 9.9 L [place] % (Auto) 5.8 Eos % (Auto) 0.2 L Baso % (Auto) 0.2 Lymph # (Auto) 1.6 [place] # (Auto) 0.9 H Eos # (Auto) 0.0 Baso # (Auto) 0.03 Absolute Neuts (auto) 13.55 H PT 14.9 H INR 1.32 APTT 30.0 pO2 VBG pH VBG pCO2 VBG HCO3 VBG Total CO2 VBG O2 Sat (Calc) VBG Base Excess VBG Potassium Glucose Lactate FiO2 Sodium 141 Potassium 3.7 Chloride 106 Carbon Dioxide 25 Anion Gap 13 BUN 9 Creatinine 0.7 Est GFR ( Amer) > 60 Est GFR (Non-Af Amer) > 60 Random Glucose 96 Calcium 9.0 Phosphorus 2.3 L Magnesium 1.9 Total Bilirubin 1.2 AST 26 ALT 12 Alkaline Phosphatase 69 Total Protein 7.8 Albumin 4.2 Globulin 3.6 Albumin/Globulin Ratio 1.2 Venous Blood Potassium Urine Color Urine Appearance Urine pH Ur Specific [place] Urine Protein Urine Glucose (UA) Urine Ketones Urine Blood Urine Nitrate Urine Bilirubin Urine Urobilinogen Ur Leukocyte Esterase Urine RBC Urine WBC Ur Epithelial Cells Urine Bacteria Hyaline Casts Urine Other Influenza Typ A,B (EIA) 02/10/19 02/10/19 02/10/19 10:41 10:44 10:45 WBC RBC Hgb Hct MCV MCH MCHC RDW Plt Count MPV Neut % (Auto) Lymph % (Auto) [place] % (Auto) Eos % (Auto) Baso % (Auto) Lymph # (Auto) [place] # (Auto) Eos # (Auto) Baso # (Auto) Absolute Neuts (auto) PT INR APTT pO2 50 VBG pH 7.42 VBG pCO2 37.0 L VBG HCO3 24.0 VBG Total CO2 25.1 VBG O2 Sat (Calc) 89.9 H VBG Base Excess -0.2 L VBG Potassium 3.5 L Glucose 87 Lactate 1.0 FiO2 21.0 Sodium 136.0 Potassium Chloride 105.0 Carbon Dioxide Anion Gap BUN Creatinine Est GFR ( Amer) Est GFR (Non-Af Amer) Random Glucose Calcium Phosphorus Magnesium Total Bilirubin AST ALT Alkaline Phosphatase Total Protein Albumin Globulin Albumin/Globulin Ratio Venous Blood Potassium 3.5 L Urine Color Yellow Urine Appearance Clear Urine pH 8.0 Ur Specific [place] 1.025 Urine Protein 100 H Urine Glucose (UA) Negative Urine Ketones 15 H Urine Blood Negative Urine Nitrate Negative Urine Bilirubin Negative Urine Urobilinogen 0.2 Ur Leukocyte Esterase Negative Urine RBC 1 - 3 H Urine WBC 2 - 5 Ur Epithelial Cells 4 - 5 Urine Bacteria Many Hyaline Casts 0 - 2 Urine Other [place] Influenza Typ A,B (EIA) Negative for flu a/b Attending/Attestation - Attestation I have personally seen and examined this patient.: Yes I have fully participated in the care of the patient.: Yes I have reviewed all pertinent clinical information: Yes Notes (Text): 02/10/19 18:17 23 year old female with no significant past medical history who presents with fever, myalgias and cough; admitted with SIRS (fever, tachycardia, leukocytosis) possibly secondary to URI. CXR and UA were negative. Rapid flu test was also negative. Will follow up on cultures. Continue with IV fluids and azithromycin. Keyur Gonsales MD Hospitalist.
[2019-02-10] MEDS: Potassium & Sodium Phosphate PO SCH ×2 (15:00→18:11)
--- NOTE | 2019-02-10 15:59 | PCM.SEPTIC ---
Sepsis Progress Note - Reassessment Type Date of Evaluation: 02/10/19 Time of Evaluation: 15:58 Reassessment Type: Non-invasive reassessment - Non Invasive Reassessment Were the most recent vital sign reviewed: Yes Vital Sign (Latest): Temp Pulse Resp BP Pulse Ox 98.9 F 101 H 19 120/78 97 02/10/19 15:47 02/10/19 15:47 02/10/19 15:47 02/10/19 15:47 02/10/19 15:47 Cardiovascular: Yes: Regular Rate, Rhythm Respiratory: Yes: Normal Breath Sounds Capillary Refill: Normal (Less than 2 sec) Pulses: Normal Radial, Normal Dorsalis Pedis, Normal Posterior Tibialis Skin: Warm, Dry
[2019-02-10] MEDS ORDERED: Pneumococcal 23-Valent Vaccine IM ONE (20:59)
[2019-02-11] MEDS: Sodium Chloride 0.9% 1,000 ML IV SCH ×2 (06:04→19:49)
[2019-02-11 07:36] LABS: HEMOGLOBIN 10.4 g/dL (12.0-16.0); MEAN CELL VOLUME 77.4 fl (80.0-105.0); MEAN PLATELET VOLUME 9.5 fl (7.0-11.0); RBC 4.34 10^6/uL (3.5-6.1); RED CELL DISTRIBUTION WIDTH 15.2 % (11.5-14.5); WHITE BLOOD COUNT 13.5 10^3/uL (4.5-11.0)
[2019-02-11 08:08] LABS: BLOOD UREA NITROGEN 6 mg/dL (7-21); CALCIUM 8.2 mg/dL (8.4-10.5); GFR NON-AFRICAN AMERICAN > 60
[2019-02-11] MEDS: Azithromycin 500MG/NS 250ml 500 MG/250 ML BAG IVPB SCH (09:27)
[2019-02-11] MEDS: Potassium & Sodium Phosphate PO SCH ×3 (09:27→17:42)
--- NOTE | 2019-02-11 14:44 | CP.PCM.PN ---
<Henrique Rangel - Last Filed: 02/11/19 14:40> Subjective - Date & Time of Evaluation Date of Evaluation: 02/11/19 Time of Evaluation: 14:40 - Subjective Subjective: Progress Note for Hospitalist service - Genoveva Rangel PGY2 IM Resident Patient seen and examined this AM. Patient with elevated fever overnight. Patient denies chest pain, shortness of breath, abdominal pain, nausea, vomiting, chills, diarrhea. She reports feeling fatigued and weakness continued from admission, with some improvement. Objective - Vital Signs/Intake and Output Vital Signs (last 24 hours): Temp Pulse Resp BP Pulse Ox 97.8 F 74 20 126/84 100 02/11/19 14:00 02/11/19 14:00 02/11/19 14:00 02/11/19 14:00 02/11/19 14:00 - Medications Medications: Current Medications Acetaminophen (Tylenol 325mg Tab) 650 mg PO Q4H PRN PRN Reason: Fever >100.4 F Last Admin: 02/11/19 01:31 Dose: 650 mg Famotidine (Pepcid) 20 mg PO 2200 [facility] Last Admin: 02/10/19 21:43 Dose: 20 mg Guaifenesin (Robitussin) 100 mg PO Q4H PRN PRN Reason: Cough Sodium Chloride (Sodium Chloride 0.9%) 1,000 mls @ 150 mls/hr IV .Q6H40M [facility] Last Admin: 02/11/19 06:04 Dose: 150 mls/hr Azithromycin (Zithromax 500mg In Ns) 500 mg in 250 mls @ 167 mls/hr IVPB DAILY [facility]; Protocol Last Admin: 02/11/19 09:27 Dose: 167 mls/hr Ondansetron HCl (Zofran Inj) 4 mg IVP Q4H PRN PRN Reason: Nausea/Vomiting Oseltamivir Phosphate (Tamiflu Cap) 75 mg PO BID [facility]; Protocol Stop: 02/15/19 12:15 Last Admin: 02/11/19 09:27 Dose: 75 mg Potassium Phos/Sodium Phos (Neutra-Phos) 1 pkt PO TID [facility] Last Admin: 02/11/19 13:12 Dose: 1 pkt - Labs Labs: 02/11/19 07:20 02/11/19 07:20 PT 14.9 SECONDS (9.4-12.5) H 02/10/19 10:25 INR 1.32 02/10/19 10:25 APTT 30.0 Seconds (26.9-38.3) 02/10/19 10:25 - Constitutional Appears: Non-toxic, No Acute Distress - Head Exam Head Exam: ATRAUMATIC, NORMAL INSPECTION, NORMOCEPHALIC - Eye Exam Eye Exam: EOMI, PERRL - ENT Exam ENT Exam: Mucous Membranes Moist - Neck Exam Neck Exam: Full ROM - Respiratory Exam Respiratory Exam: Clear to Ausculation Bilateral, NORMAL BREATHING PATTERN - Cardiovascular Exam Cardiovascular Exam: REGULAR RHYTHM, +S1, +S2 - GI/Abdominal Exam GI & Abdominal Exam: Soft, Normal Bowel Sounds. absent: Firm, Guarding, Rigid - Extremities Exam Extremities Exam: Full ROM, Normal Inspection. absent: Pedal Edema - Neurological Exam Neurological Exam: Alert, Awake, Normal Gait, Oriented x3 Neuro motor strength exam: Left Upper Extremity: 5, Right Upper Extremity: 5, Left Lower Extremity: 5, Right Lower Extremity: 5 - Psychiatric Exam Psychiatric exam: Normal Affect, Normal Mood - Skin Skin Exam: Dry, Intact Assessment and Plan - Assessment and Plan (Free Text) Assessment: 23 year old female with no significant past medical history admitted for influenza like symptoms vs. URI. Patient leukocytosis has improved since admission and procal is negative. Patient continues to be monitored on medical surgical floor. Plan: URI - Viral vs. bacterial in nature - Leukocytosis improving since admission 16.1 to 13.5 - Febrile overnight - Rapid flu negative - Procal normal - CXR reviewed showing no active disease - Blood cultures negative to date, continue to monitor - Continue IV azithromyocin - Continue tamiflu and acetaminophen for fever - Continue IV hydration Microcytic anemia - Likely secondary GI/DVT ppx - pepcid - SCD Dispo: Patient to be monitored for 24 hours, likely dc if afebrile 24 hours and continued improvement in WBC Patient case and plan discussed with attending, Dr. Gonsales <Keyur Gonsales - Last Filed: 02/11/19 15:37> Objective - Vital Signs/Intake and Output Vital Signs (last 24 hours): Temp Pulse Resp BP Pulse Ox 97.8 F 74 20 126/84 100 02/11/19 14:00 02/11/19 14:00 02/11/19 14:00 02/11/19 14:00 02/11/19 14:00 - Medications Medications: Current Medications Acetaminophen (Tylenol 325mg Tab) 650 mg PO Q4H PRN PRN Reason: Fever >100.4 F Last Admin: 02/11/19 01:31 Dose: 650 mg Famotidine (Pepcid) 20 mg PO 2200 [facility] Last Admin: 02/10/19 21:43 Dose: 20 mg Guaifenesin (Robitussin) 100 mg PO Q4H PRN PRN Reason: Cough Sodium Chloride (Sodium Chloride 0.9%) 1,000 mls @ 150 mls/hr IV .Q6H40M [facility] Last Admin: 02/11/19 06:04 Dose: 150 mls/hr Azithromycin (Zithromax 500mg In Ns) 500 mg in 250 mls @ 167 mls/hr IVPB DAILY [facility]; Protocol Last Admin: 02/11/19 09:27 Dose: 167 mls/hr Ondansetron HCl (Zofran Inj) 4 mg IVP Q4H PRN PRN Reason: Nausea/Vomiting Oseltamivir Phosphate (Tamiflu Cap) 75 mg PO BID [facility]; Protocol Stop: 02/15/19 12:15 Last Admin: 02/11/19 09:27 Dose: 75 mg Potassium Phos/Sodium Phos (Neutra-Phos) 1 pkt PO TID [facility] Last Admin: 02/11/19 13:12 Dose: 1 pkt - Labs Labs: 02/11/19 07:20 02/11/19 07:20 PT 14.9 SECONDS (9.4-12.5) H 02/10/19 10:25 INR 1.32 02/10/19 10:25 APTT 30.0 Seconds (26.9-38.3) 02/10/19 10:25 Attending/Attestation - Attestation I have personally seen and examined this patient.: Yes I have fully participated in the care of the patient.: Yes I have reviewed all pertinent clinical information, including history, physical exam and plan: Yes Notes (Text): 02/11/19 15:35 23 year old female with no significant past medical history who presents with fever, myalgias and cough; admitted with SIRS (fever, tachycardia, leukocytosis) likely secondary to viral URI. CXR and UA were negative. Rapid flu test was also negative. Will follow up on cultures which are negative to date. Patient had fever overnight however clinically symptoms are improving as well as leukocytosis. Will continue to monitor of tamiflu and azithromycin. Keyur Gonsales MD Hospitalist.
--- NOTE | 2019-02-11 20:09 | CP.PCM.PN ---
Subjective - Date & Time of Evaluation Date of Evaluation: 02/11/19 Time of Evaluation: 20:08 - Subjective Subjective: S: Patient reports chest pain worse with palpation and shortness of breath. Pain worse with cough O: RRR, CTA bilaterally, NT/ND, BS+ A and P: Ordered EKG, troponinx2, CBC, CMP Objective - Vital Signs/Intake and Output Vital Signs (last 24 hours): Temp Pulse Resp BP Pulse Ox 97.9 F 73 18 138/89 100 02/11/19 19:31 02/11/19 19:31 02/11/19 19:31 02/11/19 19:31 02/11/19 19:31 - Medications Medications: Current Medications Acetaminophen (Tylenol 325mg Tab) 650 mg PO Q4H PRN PRN Reason: Fever >100.4 F Last Admin: 02/11/19 19:48 Dose: 650 mg Famotidine (Pepcid) 20 mg PO 2200 [facility] Last Admin: 02/10/19 21:43 Dose: 20 mg Guaifenesin (Robitussin) 100 mg PO Q4H PRN PRN Reason: Cough Sodium Chloride (Sodium Chloride 0.9%) 1,000 mls @ 150 mls/hr IV .Q6H40M [facility] Last Admin: 02/11/19 19:49 Dose: 150 mls/hr Azithromycin (Zithromax 500mg In Ns) 500 mg in 250 mls @ 167 mls/hr IVPB DAILY [facility]; Protocol Last Admin: 02/11/19 09:27 Dose: 167 mls/hr Ondansetron HCl (Zofran Inj) 4 mg IVP Q4H PRN PRN Reason: Nausea/Vomiting Oseltamivir Phosphate (Tamiflu Cap) 75 mg PO BID [facility]; Protocol Stop: 02/15/19 12:15 Last Admin: 02/11/19 17:42 Dose: 75 mg Potassium Phos/Sodium Phos (Neutra-Phos) 1 pkt PO TID [facility] Last Admin: 02/11/19 17:42 Dose: 1 pkt - Labs Labs: 02/11/19 07:20 02/11/19 07:20 PT 14.9 SECONDS (9.4-12.5) H 02/10/19 10:25 INR 1.32 02/10/19 10:25 APTT 30.0 Seconds (26.9-38.3) 02/10/19 10:25
[2019-02-11 20:12] LABS: BASO # 0.03 K/mm3 (0.0-2.0); BASO % 0.3 % (0.0-3.0); EOS # 0.2 (0.0-0.7); EOS % 1.7 % (1.5-5.0); HEMOGLOBIN 10.3 g/dL (12.0-16.0); LYMPH % 27.8 % (22.0-35.0); MEAN CELL VOLUME 77.5 fl (80.0-105.0); MEAN CORPUSCULAR HEMOGLOBIN 24.4 pg (25.0-35.0); MEAN CORPUSCULAR HGB CONC 31.5 g/dl (31.0-37.0); MEAN PLATELET VOLUME 9.5 fl (7.0-11.0); MONO # 0.6 (0.1-0.6); MONO % 5.6 % (1.0-6.0); RBC 4.22 10^6/uL (3.5-6.1); RED CELL DISTRIBUTION WIDTH 15.3 % (11.5-14.5); WHITE BLOOD COUNT 10.6 10^3/uL (4.5-11.0)
[2019-02-11 20:26] LABS: ALB/GLOB RATIO 1.1 (1.1-1.8); ALBUMIN 3.4 g/dL (3.0-4.8); ALT/SGPT 18 U/L (7-56); AST/SGOT 21 U/L (14-36); BLOOD UREA NITROGEN 7 mg/dL (7-21); CALCIUM 8.5 mg/dL (8.4-10.5); GFR NON-AFRICAN AMERICAN > 60
[2019-02-12 07:20] LABS: HEMOGLOBIN 9.7 g/dL (12.0-16.0); MEAN CORPUSCULAR HGB CONC 31.2 g/dl (31.0-37.0); MEAN PLATELET VOLUME 9.7 fl (7.0-11.0); RBC 4.04 10^6/uL (3.5-6.1); RED CELL DISTRIBUTION WIDTH 15.4 % (11.5-14.5)
[2019-02-12 07:55] LABS: BLOOD UREA NITROGEN 8 mg/dL (7-21); CALCIUM 8.1 mg/dL (8.4-10.5); GFR NON-AFRICAN AMERICAN > 60
[2019-02-12 08:10] VITALS: RESP 18; O2SAT 100
--- NOTE | 2019-02-12 09:01 | CARD ---
APPROVED REPORT Date of service: 02/11/2019 EKG Measurement Heart [id number] <Conclusion> Normal sinus rhythm Normal ECG
[2019-02-12] MEDS: Potassium & Sodium Phosphate PO SCH ×2 (09:18→14:00)
[2019-02-12] MEDS: Azithromycin 500MG/NS 250ml 500 MG/250 ML BAG IVPB SCH (09:19)
--- NOTE | 2019-02-12 14:40 | RAD ---
Date of service: 02/12/2019 HISTORY: r/o infiltrate COMPARISON: 02/10/2019 TECHNIQUE: 1 view obtained. FINDINGS: LUNGS: No active pulmonary disease. PLEURA: No significant pleural effusion identified, no pneumothorax apparent. CARDIOVASCULAR: No aortic atherosclerotic calcification present. Normal cardiac size. No pulmonary vascular congestion. OSSEOUS STRUCTURES: No significant abnormalities. VISUALIZED UPPER ABDOMEN: Normal. OTHER FINDINGS: None. IMPRESSION: No active disease.
[2019-02-12 17:01] VITALS: BP 126/78; PULSE 66; TEMP 98.5
--- NOTE | 2019-02-12 17:03 | CP.PCM.DIS ---
<Henrique Rangel - Last Filed: 02/12/19 17:01> Provider - Provider Date of Admission: 02/10/19 11:44 Attending physician: Keyur Gonsales MD Primary care physician: Tiffany Farah MD Time Spent in preparation of Discharge (in minutes): 25 Diagnosis - Discharge Diagnosis (1) Upper respiratory infection Status: Acute Hospital Course - Lab Results Lab Results: Micro Results 02/10/19 15:49 Urine Random Urine Culture - Final <10,000 CFU/ML. MULTIPLE SPECIES. PROBABLE CONTAMINATION. 02/10/19 10:40 Blood Blood Culture - Preliminary NO GROWTH AFTER 48 HOURS 02/10/19 10:25 Blood Blood Culture - Preliminary NO GROWTH AFTER 48 HOURS Most Recent Lab Values WBC 7.0 10^3/uL (4.5-11.0) D 02/12/19 06:45 RBC 4.04 10^6/uL (3.5-6.1) 02/12/19 06:45 Hgb 9.7 g/dL (12.0-16.0) L 02/12/19 06:45 Hct 31.1 % (36.0-48.0) L 02/12/19 06:45 MCV 77.0 fl (80.0-105.0) L 02/12/19 06:45 MCH 24.0 pg (25.0-35.0) L 02/12/19 06:45 MCHC 31.2 g/dl (31.0-37.0) 02/12/19 06:45 RDW 15.4 % (11.5-14.5) H 02/12/19 06:45 Plt Count 213 10^3/uL (120.0-450.0) 02/12/19 06:45 MPV 9.7 fl (7.0-11.0) 02/12/19 06:45 Neut % (Auto) 64.6 % (50.0-68.0) 02/11/19 20:00 Lymph % (Auto) 27.8 % (22.0-35.0) 02/11/19 20:00 [place] % (Auto) 5.6 % (1.0-6.0) 02/11/19 20:00 Eos % (Auto) 1.7 % (1.5-5.0) 02/11/19 20:00 Baso % (Auto) 0.3 % (0.0-3.0) 02/11/19 20:00 Lymph # (Auto) 3.0 (1.2-3.4) 02/11/19 20:00 [place] # (Auto) 0.6 (0.1-0.6) 02/11/19 20:00 Eos # (Auto) 0.2 (0.0-0.7) 02/11/19 20:00 Baso # (Auto) 0.03 K/mm3 (0.0-2.0) 02/11/19 20:00 Absolute Neuts (auto) 6.86 (1.4-6.5) H 02/11/19 20:00 PT 14.9 SECONDS (9.4-12.5) H 02/10/19 10:25 INR 1.32 02/10/19 10:25 APTT 30.0 Seconds (26.9-38.3) 02/10/19 10:25 pO2 50 mm/Hg (30-55) 02/10/19 10:45 VBG pH 7.42 (7.32-7.43) 02/10/19 10:45 VBG pCO2 37.0 (40-60) L 02/10/19 10:45 VBG HCO3 24.0 mmol/l (21-28) 02/10/19 10:45 VBG Total CO2 25.1 mmol.L (22-28) 02/10/19 10:45 VBG O2 Sat (Calc) 89.9 % (40-65) H 02/10/19 10:45 VBG Base Excess -0.2 mmol/L (0.0-2.0) L 02/10/19 10:45 VBG Potassium 3.5 mmol/L (3.6-5.2) L 02/10/19 10:45 Sodium 136.0 mmol/L (132-148) 02/10/19 10:45 Chloride 105.0 mmol/L (98-107) 02/10/19 10:45 Glucose 87 mg/dl (65-105) 02/10/19 10:45 Lactate 1.0 mmol/L (0.7-2.1) 02/10/19 10:45 FiO2 21.0 % 02/10/19 10:45 Sodium 140 mmol/L (132-148) 02/12/19 06:45 Potassium 3.8 mmol/L (3.6-5.0) 02/12/19 06:45 Chloride 110 mmol/L (98-107) H 02/12/19 06:45 Carbon Dioxide 23 mmol/L (21-33) 02/12/19 06:45 Anion Gap 10 (10-20) 02/12/19 06:45 BUN 8 mg/dL (7-21) 02/12/19 06:45 Creatinine 0.7 mg/dl (0.7-1.2) 02/12/19 06:45 Est GFR ( Amer) > 60 02/12/19 06:45 Est GFR (Non-Af Amer) > 60 02/12/19 06:45 Random Glucose 87 mg/dL (70-110) 02/12/19 06:45 Calcium 8.1 mg/dL (8.4-10.5) L 02/12/19 06:45 Phosphorus 2.9 mg/dL (2.5-4.5) 02/11/19 07:20 Magnesium 2.0 mg/dL (1.7-2.2) 02/11/19 15:00 Total Bilirubin 0.4 mg/dL (0.2-1.3) 02/11/19 20:00 AST 21 U/L (14-36) 02/11/19 20:00 ALT 18 U/L (7-56) 02/11/19 20:00 Alkaline Phosphatase 56 U/L (38-126) 02/11/19 20:00 Troponin I < 0.01 ng/mL 02/12/19 02:00 Total Protein 6.6 g/dL (5.8-8.3) 02/11/19 20:00 Albumin 3.4 g/dL (3.0-4.8) 02/11/19 20:00 Globulin 3.1 gm/dL 02/11/19 20:00 Albumin/Globulin Ratio 1.1 (1.1-1.8) 02/11/19 20:00 Procalcitonin < 0.05 NG/ML (0.19-0.49) L 02/10/19 10:00 Venous Blood Potassium 3.5 mmol/L (3.6-5.2) L 02/10/19 10:45 Urine Color Yellow (YELLOW) 02/10/19 10:44 Urine Appearance Clear (CLEAR) 02/10/19 10:44 Urine pH 8.0 (4.7-8.0) 02/10/19 10:44 Ur Specific [place] 1.025 (1.005-1.035) 02/10/19 10:44 Urine Protein 100 mg/dL (<30 mg/dL) H 02/10/19 10:44 Urine Glucose (UA) Negative mg/dL (NEGATIVE) 02/10/19 10:44 Urine Ketones 15 mg/dL (NEGATIVE) H 02/10/19 10:44 Urine Blood Negative (NEGATIVE) 02/10/19 10:44 Urine Nitrate Negative (NEGATIVE) 02/10/19 10:44 Urine Bilirubin Negative (NEGATIVE) 02/10/19 10:44 Urine Urobilinogen 0.2 E.U./dL (<1 E.U./dL) 02/10/19 10:44 Ur Leukocyte Esterase Negative Vicky/uL (NEGATIVE) 02/10/19 10:44 Urine RBC 1 - 3 /hpf (0-2) H 02/10/19 10:44 Urine WBC 2 - 5 /hpf (0-6) 02/10/19 10:44 Ur Epithelial Cells 4 - 5 /hpf (0-5) 02/10/19 10:44 Urine Bacteria Many /hpf (NONE) 02/10/19 10:44 Hyaline Casts 0 - 2 /hpf (NONE) 02/10/19 10:44 Urine Other Uyeast /hpf 02/10/19 10:44 Influenza Typ A,B (EIA) Negative for flu a/b (NEGATIVE) 02/10/19 10:41 - Hospital Course Hospital Course: 23 year old female with no past medical history who presented to [facility] ED on 02/10/2019 complaining of fever, cough, myalgia for 2 days. Patient reported elevated fever 101F while at home. Patient was evaluated in ED and noted to have chest xray without active disease, elevated WBC, fever of 102.5F and rapid flu negative and was admitted for URI. Patient was given IV azithromyocin, tamiflu IV, IVF, tylenol for fever and monitored on medical surgical floor. Patient was noted to have fevers during admission. A procal was drawn and noted to be negative. Patient was given supportive care with improvement in her white blood cell count, blood cultures were negative at 48 hours. During admission patient reported chest discomfort, troponins were drawn and resulted as negative, EKG was conducted showing no acute changes in her ST segments or presence of t wave inversions. Patient was able to rest comfortably during admission. Repeat chest xray on 02/12/2019 was conducted and showed no acute disease. Patient was deemed medically stable for discharge. Discharge planning including appropriate follow up, medication reconciliation, and signs and symptoms to be concerned for to return to nearest [facility] ED were conducted. Patient was agreeable and in understanding. Discharge Exam - Head Exam Head Exam: ATRAUMATIC, NORMAL INSPECTION, NORMOCEPHALIC - Eye Exam Eye Exam: EOMI, PERRL Pupil Exam: PERRL - ENT Exam ENT Exam: Mucous Membranes Moist - Neck Exam Neck exam: Full Rom - Respiratory Exam Respiratory Exam: Clear to PA & Lateral, NORMAL BREATHING PATTERN, UNREMARKABLE. absent: Rales, Rhonchi, Wheezes - Cardiovascular Exam Cardiovascular Exam: REGULAR RHYTHM, +S1, +S2. absent: Tachycardia, JVD - GI/Abdominal Exam GI & Abdominal Exam: Normal Bowel Sounds, Soft. absent: Guarding, Hernia, Rigid, Tenderness - Extremities Exam Extremities exam: normal inspection - Neurological Exam Neurological exam: Alert, CN II-XII Intact, Normal Gait, Oriented x3, Reflexes Normal - Psychiatric Exam Psychiatric exam: Normal Affect, Normal Mood - Skin Skin Exam: Dry, Intact Discharge Plan - Discharge Medications Prescriptions: Azithromycin 500 mg PO DAILY #2 tablet guaiFENesin [Robitussin] 100 mg PO Q4H PRN #1 udc PRN Reason: Cough Oseltamivir Cap [Tamiflu Cap] 75 mg PO BID #4 capsule - Follow Up Plan Condition: GOOD Disposition: HOME/ ROUTINE Instructions: Bacterial Upper Respiratory Infection, Adult (DC) Additional Instructions: Patient should continue medications as directed. Patient should see her primary care doctor within 2 weeks. Patient should return to the hospital if symptoms worsen. Referrals: Tiffany Farah MD [Primary Care Provider] - <Keyur Gonsales - Last Filed: 02/12/19 18:18> Provider - Provider Date of Admission: 02/10/19 11:44 Attending physician: Keyur Gonsales MD Primary care physician: Tiffany Farah MD Time Spent in preparation of Discharge (in minutes): 35 Hospital Course - Lab Results Lab Results: Micro Results 02/10/19 15:49 Urine Random Urine Culture - Final <10,000 CFU/ML. MULTIPLE SPECIES. PROBABLE CONTAMINATION. 02/10/19 10:40 Blood Blood Culture - Preliminary NO GROWTH AFTER 48 HOURS 02/10/19 10:25 Blood Blood Culture - Preliminary NO GROWTH AFTER 48 HOURS Most Recent Lab Values WBC 7.0 10^3/uL (4.5-11.0) D 02/12/19 06:45 RBC 4.04 10^6/uL (3.5-6.1) 02/12/19 06:45 Hgb 9.7 g/dL (12.0-16.0) L 02/12/19 06:45 Hct 31.1 % (36.0-48.0) L 02/12/19 06:45 MCV 77.0 fl (80.0-105.0) L 02/12/19 06:45 MCH 24.0 pg (25.0-35.0) L 02/12/19 06:45 MCHC 31.2 g/dl (31.0-37.0) 02/12/19 06:45 RDW 15.4 % (11.5-14.5) H 02/12/19 06:45 Plt Count 213 10^3/uL (120.0-450.0) 02/12/19 06:45 MPV 9.7 fl (7.0-11.0) 02/12/19 06:45 Neut % (Auto) 64.6 % (50.0-68.0) 02/11/19 20:00 Lymph % (Auto) 27.8 % (22.0-35.0) 02/11/19 20:00 [place] % (Auto) 5.6 % (1.0-6.0) 02/11/19 20:00 Eos % (Auto) 1.7 % (1.5-5.0) 02/11/19 20:00 Baso % (Auto) 0.3 % (0.0-3.0) 02/11/19 20:00 Lymph # (Auto) 3.0 (1.2-3.4) 02/11/19 20:00 [place] # (Auto) 0.6 (0.1-0.6) 02/11/19 20:00 Eos # (Auto) 0.2 (0.0-0.7) 02/11/19 20:00 Baso # (Auto) 0.03 K/mm3 (0.0-2.0) 02/11/19 20:00 Absolute Neuts (auto) 6.86 (1.4-6.5) H 02/11/19 20:00 PT 14.9 SECONDS (9.4-12.5) H 02/10/19 10:25 INR 1.32 02/10/19 10:25 APTT 30.0 Seconds (26.9-38.3) 02/10/19 10:25 pO2 50 mm/Hg (30-55) 02/10/19 10:45 VBG pH 7.42 (7.32-7.43) 02/10/19 10:45 VBG pCO2 37.0 (40-60) L 02/10/19 10:45 VBG HCO3 24.0 mmol/l (21-28) 02/10/19 10:45 VBG Total CO2 25.1 mmol.L (22-28) 02/10/19 10:45 VBG O2 Sat (Calc) 89.9 % (40-65) H 02/10/19 10:45 VBG Base Excess -0.2 mmol/L (0.0-2.0) L 02/10/19 10:45 VBG Potassium 3.5 mmol/L (3.6-5.2) L 02/10/19 10:45 Sodium 136.0 mmol/L (132-148) 02/10/19 10:45 Chloride 105.0 mmol/L (98-107) 02/10/19 10:45 Glucose 87 mg/dl (65-105) 02/10/19 10:45 Lactate 1.0 mmol/L (0.7-2.1) 02/10/19 10:45 FiO2 21.0 % 02/10/19 10:45 Sodium 140 mmol/L (132-148) 02/12/19 06:45 Potassium 3.8 mmol/L (3.6-5.0) 02/12/19 06:45 Chloride 110 mmol/L (98-107) H 02/12/19 06:45 Carbon Dioxide 23 mmol/L (21-33) 02/12/19 06:45 Anion Gap 10 (10-20) 02/12/19 06:45 BUN 8 mg/dL (7-21) 02/12/19 06:45 Creatinine 0.7 mg/dl (0.7-1.2) 02/12/19 06:45 Est GFR ( Amer) > 60 02/12/19 06:45 Est GFR (Non-Af Amer) > 60 02/12/19 06:45 Random Glucose 87 mg/dL (70-110) 02/12/19 06:45 Calcium 8.1 mg/dL (8.4-10.5) L 02/12/19 06:45 Phosphorus 2.9 mg/dL (2.5-4.5) 02/11/19 07:20 Magnesium 2.0 mg/dL (1.7-2.2) 02/11/19 15:00 Total Bilirubin 0.4 mg/dL (0.2-1.3) 02/11/19 20:00 AST 21 U/L (14-36) 02/11/19 20:00 ALT 18 U/L (7-56) 02/11/19 20:00 Alkaline Phosphatase 56 U/L (38-126) 02/11/19 20:00 Troponin I < 0.01 ng/mL 02/12/19 02:00 Total Protein 6.6 g/dL (5.8-8.3) 02/11/19 20:00 Albumin 3.4 g/dL (3.0-4.8) 02/11/19 20:00 Globulin 3.1 gm/dL 02/11/19 20:00 Albumin/Globulin Ratio 1.1 (1.1-1.8) 02/11/19 20:00 Procalcitonin < 0.05 NG/ML (0.19-0.49) L 02/10/19 10:00 Venous Blood Potassium 3.5 mmol/L (3.6-5.2) L 02/10/19 10:45 Urine Color Yellow (YELLOW) 02/10/19 10:44 Urine Appearance Clear (CLEAR) 02/10/19 10:44 Urine pH 8.0 (4.7-8.0) 02/10/19 10:44 Ur Specific [place] 1.025 (1.005-1.035) 02/10/19 10:44 Urine Protein 100 mg/dL (<30 mg/dL) H 02/10/19 10:44 Urine Glucose (UA) Negative mg/dL (NEGATIVE) 02/10/19 10:44 Urine Ketones 15 mg/dL (NEGATIVE) H 02/10/19 10:44 Urine Blood Negative (NEGATIVE) 02/10/19 10:44 Urine Nitrate Negative (NEGATIVE) 02/10/19 10:44 Urine Bilirubin Negative (NEGATIVE) 02/10/19 10:44 Urine Urobilinogen 0.2 E.U./dL (<1 E.U./dL) 02/10/19 10:44 Ur Leukocyte Esterase Negative Vicky/uL (NEGATIVE) 02/10/19 10:44 Urine RBC 1 - 3 /hpf (0-2) H 02/10/19 10:44 Urine WBC 2 - 5 /hpf (0-6) 02/10/19 10:44 Ur Epithelial Cells 4 - 5 /hpf (0-5) 02/10/19 10:44 Urine Bacteria Many /hpf (NONE) 02/10/19 10:44 Hyaline Casts 0 - 2 /hpf (NONE) 02/10/19 10:44 Urine Other Uyeast /hpf 02/10/19 10:44 Influenza Typ A,B (EIA) Negative for flu a/b (NEGATIVE) 02/10/19 10:41 Attending/Attestation - Attestation I have personally seen and examined this patient.: Yes I have fully participated in the care of the patient.: Yes I have reviewed all pertinent clinical information, including history, physical exam and plan: Yes Notes (Text): 02/12/19 18:15 23 year old female with no significant past medical history who presented with fever, myalgias and cough. She was admitted with SIRS (fever, tachycardia, leukocytosis) likely secondary to viral URI and started on azithromycin and villalba iflu. CXR and UA were negative. Rapid flu test was also negative. Cultures were negative to date. Patient had fever initially which subsided and leukocytosis resolved. Overnight she reported chest pain and shortness of breath but serial troponins, EKG and CXR were negative. Patient is discharged home to follow up with pmd. Continue with po azithromycin and tamiflu. Keyur Gonsales MD Hospitalist.
== END 2019-02-12 17:16 | disposition home or self-care (01) | DRG 586 ==
LOC: ED 09:20 → ERH 11:44 → 5RSO 16:56
PROVIDERS: ADMIT Internal Medicine; ATTEND Internal Medicine
DX: J06.9 Acute upper respiratory infection, unspecified (principal); R65.10 Systemic inflammatory response syndrome (SIRS) of non-infectious origin without acute organ dysfunction; D50.9 Iron deficiency anemia, unspecified; Z82.49 Family history of ischemic heart disease and other diseases of the circulatory system; Z83.3 Family history of diabetes mellitus